=== PATIENT | male | born 1945 | race Caucasian/White ===

== ENCOUNTER 2016-12-01 10:56 | Outpatient (CLI) | payer OTHER ==
--- NOTE | 2016-12-01 13:30 | DIAGNOSTIC IMAGING REPORT ---
PROCEDURE: US SCROTUM/TESTICLE INDICATION: TESTICULAR MASS ON LEFT SIDE TECHNIQUE: Fuentes scale and color Doppler sonographic images through the scrotum were obtained. COMPARISON: None. FINDINGS: RIGHT TESTICLE: Measures 4.7 x 3.2 x 3 cm with normal echo structure and vascularity. 7 mm epididymal cyst. Small hydrocele. LEFT TESTICLE: Measures of 4.8 x 2.3 x 3.3 cm with normal echo structure and vascularity. Heterogeneous enlarged left epididymis tail demonstrating hyperemia. There are also too echogenic nonshadowing masses in the tail of the epididymis measuring 0.8 and 0.7 cm. There are two epididymal head cysts measuring 1 cm and 0.9 cm. Small hydrocele. IMPRESSION: 1. Enlarged heterogeneous hyperemic left epididymis suggestive of epididymitis. There are also two echogenic nonshadowing masses and tail of the epididymis which are relatively avascular which may represent chronic changes. Correlate clinically and recommend follow-up ultrasound in 3 months. 2. Normal bilateral testicles 3. Small bilateral hydroceles 4. Results discussed with Dr. Hernandez
== END 2016-12-01 23:00 ==
LOC: US SRH 10:56
DX: N50.9 Disorder of male genital organs, unspecified (principal); N43.3 Hydrocele, unspecified; Z80.42 Family history of malignant neoplasm of prostate